=== PATIENT | female | born 1990 | race Caucasian/White ===

== ENCOUNTER 2017-07-07 09:37 | Emergency (ER) | payer OTHER ==
[2017-07-07] MEDS ORDERED: Ondansetron ODT TAB* 4 MG PO ONE (10:21)
--- NOTE | 2017-07-07 10:51 | UC ---
Abdominal Pain Female HPI - HPI Summary HPI Summary: 27 year old female with abdominal pain - History of Current Complaint Chief Complaint: UCAbdominalPain Stated Complaint: ABDOMINAL PAIN Time Seen by Provider: 07/07/17 10:32 Hx Obtained From: Patient, Family/Automotive Service Writer Hx Last Menstrual Period: last Onset/Duration: Sudden Onset Timing: Constant Severity Initially: Severe Severity Currently: Severe Location: Epigastric - 11/27 Character: Dull Aggravating Factor(s): Nothing Alleviating Factor(s): Nothing Associated Signs and Symptoms: Positive: Nausea, Vomiting. Negative: Blood in Stool Allergies/Adverse Reactions: Allergies Allergy/AdvReac Type Severity Reaction Status Date / Time Dextromethorphan Allergy Hives Verified 07/07/17 10:14 Home Medications: Home Medications NK [No Home Medications Reported] 07/07/17 [History Confirmed 07/07/17] PMH/Surg Hx/FS Hx/Imm Hx Previously Healthy: Yes - Surgical History Surgical History: None - Family History Known Family History: Positive: None - Social History Lives: With Family Alcohol Use: Rare Substance Use Type: None Smoking Status (MU): Never Smoked Tobacco Review of Systems Gastrointestinal: Abdominal Pain, Vomiting, Nausea Is Patient Immunocompromised?: No All Other Systems Reviewed And Are Negative: Yes Physical Exam Triage Information Reviewed: Yes Appearance: Well-Appearing, Well-Nourished, Pain Distress - mild Vital Signs: Initial Vital Signs Temp 98.6 F 07/07/17 10:09 Pulse 66 07/07/17 10:09 Resp 18 07/07/17 10:09 Pulse Ox 100 07/07/17 10:09 Vital Signs Reviewed: Yes Eye Exam: Normal ENT Exam: Normal Dental Exam: Normal Neck exam: Normal Neck: Positive: 1 Respiratory Exam: Normal Cardiovascular Exam: Normal Abdominal Exam: Normal Abdomen Description: Positive: Soft, Other: - mild tenderness to palpation epigastric. Negative: CVA Tenderness (R), CVA Tenderness (L), Guarding Bowel Sounds: Positive: Present Musculoskeletal Exam: Normal Neurological Exam: Normal Psychological Exam: Normal Skin Exam: Normal Re-Evaluation - Re-Evaluation First Eval Change: Worse - as patient tried to get up to leave she had episode of pre syncope -- now she was agreeable to ambulance and started fluids at this time Abd Pain Female Course/Dx - Course Course Of Treatment: Given dose of Zofran BP WNL . glucose 155. - Differential Dx/Diagnosis Provider Diagnoses: Gastroenteritis / vomiting Discharge - Discharge Plan Condition: Fair Disposition: TRANS HIGHER LVL OF CARE FAC Patient Education Materials: Acute Nausea and Vomiting (ED) Referrals: Harvey Hackett MD [Primary Care Provider] - Additional Instructions: To go to ED by ambulance
[2017-07-07 11:15] VITALS: BP 112/65
[2017-07-07] MEDS ORDERED: NS 0.9% 1000 ML* 1,000 ML BOLUS SCH (11:30)
== END 2017-07-07 11:40 | disposition short-term general hospital (02) ==
LOC: UCEAST 09:37
DX: K52.9 Noninfective gastroenteritis and colitis, unspecified (principal); R55 Syncope and collapse
CPT/HCPCS: 96360; 99203; A9270-GY; G0463

== ENCOUNTER 2017-07-07 12:02 | Inpatient (IN) | payer OTHER ==
[2017-07-07] MEDS ORDERED: Ondansetron INJ* 2 MG/ML VIAL IV ONE (12:19)
[2017-07-07] MEDS ORDERED: NS 0.9% 1000 ML* 1,000 ML IV ONE (12:19)
[2017-07-07] MEDS ORDERED: Ondansetron INJ* 2 MG/ML VIAL ONE (12:22)
[2017-07-07 12:36] LABS: Hematocrit 41 % (35-47); Hemoglobin 13.7 g/dl (12.0-16.0); Mean Corpuscular HGB Conc 33 g/dl (31-36); Mean Corpuscular Hemoglobin 29 pg (27-31); Mean Corpuscular Volume 87 fL (80-97); Mean Platelet Volume 11 um3 (7.4-10.4); Red Blood Count 4.75 10^6/ul (4.0-5.4); Red Cell Distribution Width 14 % (10.5-15); White Blood Count 13.7 10^3/ul (3.5-10.8)
[2017-07-07 12:52] LABS: ALT 18 U/L (7-52); AST 17 U/L (13-39); Albumin 4.6 g/dL (3.2-5.2); Alkaline Phosphatase 39 U/L (34-104); Anion Gap 11 mmol/L (2-11); BUN/Creatinine Ratio 25.8 (8-20); Blood Urea Nitrogen 16 mg/dL (6-24); C Reactive Protein 3.63 mg/L (< 5.00); CO2 Carbon Dioxide 21 mmol/L (22-32); Calcium 9.6 mg/dL (8.6-10.3); Chloride 100 mmol/L (101-111); EGFR African American 147.4 (>60); EGFR Non-African American 114.6 (>60); Globulin 3.2 g/dL (2-4); Glucose 158 mg/dL (70-100); Lipase 14 U/L (11.0-82.0); Magnesium 1.8 mg/dL (1.9-2.7); Potassium 3.7 mmol/L (3.5-5.0); Sodium 132 mmol/L (133-145); Total Protein 7.8 g/dL (6.4-8.9)
[2017-07-07 13:45] LABS: Urine Bilirubin Negative (Negative); Urine Glucose Negative (Negative); Urine Nitrite Negative (Negative)
[2017-07-07] MEDS ORDERED: Metoclopramide IV* 5 MG/ML 2 ML VIAL IV SLOW PU ONE (14:06)
[2017-07-07] MEDS ORDERED: Lidocaine 2% VISCOUS* 15 ML UDC PO ONE (14:07)
[2017-07-07] MEDS ORDERED: Al Hydrox/Mg Hydrox/Simet LIQ* 30 ML UDC PO ONE (14:07)
[2017-07-07] MEDS ORDERED: Metoclopramide IV* 5 MG/ML 2 ML VIAL ONE (14:09)
--- NOTE | 2017-07-07 14:52 | RAD ---
HISTORY: Right upper quadrant pain and vomiting. COMPARISONS: None TECHNIQUE: Multiple transverse and longitudinal ultrasound images were obtained of the right upper quadrant. FINDINGS: LIVER: The liver is normal in dimensions and echogenicity. Normal hepatic and portal venous blood flow is duplicated with color flow imaging. There is no gross intrahepatic biliary duct dilatation. GALLBLADDER AND EXTRAHEPATIC BILIARY DUCT: The hand tire trimmer reports a positive sonographic Valenzuela sign. There is mildly echogenic fluid filling the gallbladder lumen. Resting on top of this fluid are echogenic and shadowing foci consistent with gallbladder stones. There is at least one gallstone at the gallbladder neck measuring just over a centimeter in diameter that appears to be immobile. The wall the gallbladder measures up to 6 mm in thickness. There is no definite pericholecystic fluid. The common bile duct measures a maximum diameter of 2 mm. PANCREAS: The portions of the pancreas not obscured by bowel gas are normal in appearance. RIGHT KIDNEY: The right kidney is normal in size, morphology and echogenicity. AORTA AND IVC: The visualized portions are normal in appearance and not pathologically dilated. IMPRESSION: CHOLELITHIASIS AND BILIARY SLUDGE WITH APPEARANCE OF GALLBLADDER WALL THICKENING AND AT LEAST ONE IMMOBILE GALLSTONE AT THE GALLBLADDER NECK. SONOGRAPHIC FINDINGS COULD BE CONSISTENT WITH EARLY OBSTRUCTIVE CHOLECYSTITIS IN THE CORRECT CLINICAL SETTING. IF CLINICALLY WARRANTED FURTHER PHYSIOLOGIC CHARACTERIZATION COULD BE MADE WITH HIDA SCAN.
[2017-07-07] MEDS ORDERED: Morphine INJ* 4 MG/ML 1 ML CARPUJECT IV ONE (15:43)
[2017-07-07] MEDS ORDERED: HYDROmorphone INJ* 1 MG/ML CARPUJECT SYRINGE IV PRN (16:09)
[2017-07-07] MEDS ORDERED: Ondansetron INJ* 2 MG/ML VIAL IV PRN (16:09)
[2017-07-07] MEDS ORDERED: ZOSYN 3.375 GM x ONE DOSE over 30 miuntes IVPB ×2 (17:00)
[2017-07-07] MEDS ORDERED: Piperacillin/Tazobactam VIAL*) 3.375 GM in NS 0.9% 100 ML* 100 ML IVPB SCH (17:00)
--- NOTE | 2017-07-07 17:56 | ED ---
Sue Napoles Edward, scribed for Jhon Kang MD on 07/07/17 at 1242 . Complex/Multi-Sys Presentation - HPI Summary HPI Summary: 27 y/o female BIBA from Urgent Care c/o sudden onset ABD pain and intermittent N /V starting at 06:00 this morning. Pt woke up to severe ABD pain mostly in the upper ABD. Pt also c/o chest tightness. The vomiting is intermittent - pt has vomited 2x since receiving medicine at urgent care. Associated sx: pt felt lightheaded and had a near syncopal episode at Urgent Care after standing up. Pt is accompanied by her mother. Denies sick contact. LNMP last weekend. Denies vaginal discharge/bleeding. - History Of Current Complaint Chief Complaint: EDNauseaVomitDiarrh Hx Obtained From: Patient Onset/Duration: Sudden Onset, Lasting Hours Timing: Constant Location: Pain At: - upper ABD Associated Signs And Symptoms: Positive: Syncope - near syncope and lightheadednes, Nausea, Vomiting, Abdominal Pain - Allergies/Home Medications Allergies/Adverse Reactions: Allergies Allergy/AdvReac Type Severity Reaction Status Date / Time Dextromethorphan Allergy Hives Verified 07/07/17 12:13 PMH/Surg Hx/FS Hx/Imm Hx Previously Healthy: No Endocrine/Hematology History: Denies: Hx Diabetes, Hx Thyroid Disease Cardiovascular History: Denies: Hx Hypertension Respiratory History: Denies: Hx Asthma, Hx Chronic Obstructive Pulmonary Disease (COPD) GI History: Denies: Hx Ulcer Infectious Disease History: No Infectious Disease History: Denies: Hx Hepatitis, Hx Human Immunodeficiency Virus (HIV), History Other Infectious Disease, Traveled Outside the [place] in Last 30 Days - Family History Known Family History: Positive: None - Social History Alcohol Use: Rare Substance Use Type: Reports: None Smoking Status (MU): Never Smoked Tobacco Review of Systems Negative: Fever, Chills Negative: Erythema Negative: Sore Throat Negative: Chest Pain Negative: Shortness Of Breath, Cough Positive: Abdominal Pain, Vomiting, Nausea Negative: dysuria, hematuria Negative: Myalgia, Edema Negative: Rash Positive: Syncope - Near syncope and lightheadedness All Other Systems Reviewed And Are Negative: Yes Physical Exam - Summary Physical Exam Summary: Constitutional: Well-developed, Well-nourished, Alert. (-) Distressed Skin: Warm, Dry HENT: Normocephalic; Atraumatic Eyes: Conjunctiva normal Neck: Musculoskeletal ROM normal neck. (-) JVD, (-) Stridor, (-) Tracheal deviation Cardio: Rhythm regular, rate normal, Heart sounds normal; Intact distal pulses; The pedal pulses are 2+ and symmetric. Radial pulses are 2+ and symmetric. (-) Murmur Pulmonary/Chest wall: Effort normal. (-) Respiratory distress, (-) Wheezes, (-) Rales Abd: Soft, Mild RUQ and epigastric tenderness. (-) Distension, (-) Guarding, (- ) Rebound Musculoskeletal: (-) Edema Lymph: (-) Cervical adenopathy Neuro: Alert, Oriented x3 Psych: Mood and affect Normal Triage Information Reviewed: Yes Vital Signs On Initial Exam: Initial Vitals Temp Pulse Resp BP Pulse Ox 98 F 66 16 113/66 99 07/07/17 12:11 07/07/17 12:11 07/07/17 12:11 07/07/17 12:11 07/07/17 12:11 Vital Signs Reviewed: Yes - Mason Coma Scale Coma Scale Total: 15 Diagnostics - Vital Signs Vital Signs Temp Pulse Resp BP Pulse Ox 07/07/17 12:30 65 105/64 99 07/07/17 12:15 49 88 07/07/17 12:12 113/66 07/07/17 12:11 98 F 66 16 113/66 99 - Laboratory Lab Results: Lab Results 07/07/17 Range/Units 11:30 WBC 13.7 H (3.5-10.8) 10^3/ul RBC 4.75 (4.0-5.4) 10^6/ul Hgb 13.7 (12.0-16.0) g/dl Hct 41 (35-47) % MCV 87 (80-97) fL MCH 29 (27-31) pg MCHC 33 (31-36) g/dl RDW 14 (10.5-15) % Plt Count 186 (150-450) 10^3/ul MPV 11 H (7.4-10.4) um3 Neut % (Auto) 94.7 H (38-83) % Lymph % (Auto) 4.1 L (25-47) % [place] % (Auto) 0.9 L (1-9) % Eos % (Auto) 0 (0-6) % Baso % (Auto) 0.3 (0-2) % Absolute Neuts (auto) 13.0 H (1.5-7.7) 10^3/ul Absolute Lymphs (auto) 0.6 L (1.0-4.8) 10^3/ul Absolute Monos (auto) 0.1 (0-0.8) 10^3/ul Absolute Eos (auto) 0 (0-0.6) 10^3/ul Absolute Basos (auto) 0 (0-0.2) 10^3/ul Absolute Nucleated RBC 0 10^3/ul Nucleated RBC % 0 Result Diagrams: 07/07/17 11:30 07/07/17 11:30 Lab Statement: Any lab studies that have been ordered have been reviewed, and results considered in the medical decision making process. - Ultrasound No standard instances Ultrasound Interpretation: Positive (See Comments) - CHOLELITHIASIS AND BILIARY SLUDGE WITH APPEARANCE OF GALLBLADDER WALL THICKENING AND AT LEAST ONE IMMOBILE GALLSTONE AT THE GALLBLADDER NECK. SONOGRAPHIC FINDINGS COULD BE CONSISTENT WITH EARLY OBSTRUCTIVE CHOLECYSTITIS IN THE CORRECT CLINICAL SETTING. IF CLINICALLY WARRANTED FURTHER PHYSIOLOGIC CHARACTERIZATION COULD BE MADE WITH HIDA SCAN. Ultrasound Interpretation Completed By: Radiologist - ED PHYSICIAN REVIEWS AND AGREES Re-Evaluation - Re-Evaluation 1 Re-Evaluation Time: 15:43 Change: Unchanged - Updated pt on plan of care Complex Multi-Symp Course/Dx Assessment/Plan: 27 y/o female BIBA from Urgent Care c/o sudden onset ABD pain and intermittent N/V starting at 06:00 this morning. Pt woke up to diffuse, severe ABD pain. Pt also c/o chest tightness. The vomiting is intermittent - pt has vomited 2x since receiving medicine at urgent care. Associated sx: pt felt lightheaded and had a near syncopal episode at Urgent Care after standing up. Pt is accompanied by her mother. Denies sick contact. LNMP last weekend. Denies vaginal discharge/bleeding. GALLBLADDER US SHOWS CHOLELITHIASIS AND BILIARY SLUDGE WITH APPEARANCE OF GALLBLADDER WALL THICKENING AND AT LEAST ONE IMMOBILE GALLSTONE AT THE GALLBLADDER NECK. SONOGRAPHIC FINDINGS COULD BE CONSISTENT WITH EARLY OBSTRUCTIVE CHOLECYSTITIS IN THE CORRECT CLINICAL SETTING. IF CLINICALLY WARRANTED FURTHER PHYSIOLOGIC CHARACTERIZATION COULD BE MADE WITH HIDA SCAN. Spoke with Dr. León who will come to see pt in ED. Discussed dx of cholecystitis. No laboratory evidence for obstruction. Pt will be admitted by Dr. León at 16:09. - Diagnoses Provider Diagnoses: Cholecystitis - Physician Notifications Discussed Care Of Patient With: Rolo León Time Discussed With Above Provider: 15:30 Instructed by Provider To: MD Will See In ED Discharge - Discharge Plan Condition: Stable Disposition: ADMITTED TO [facility] Referrals: Harvey Hackett MD [Primary Care Provider] - The documentation as recorded by the Sue vargas Edward accurately reflects the service I personally performed and the decisions made by Pearl coelho Jerry, MD.
[2017-07-07] MEDS: Ketorolac INJ* 30 MG/ML 1 ML VIAL IV PRN (17:59)
[2017-07-07] MEDS: HYDROmorphone INJ* 1 MG/ML CARPUJECT SYRINGE IV PRN (18:20)
[2017-07-07] MEDS: ZOSYN 3.375 GM Q8H per EXTENDED INFUSION IVPB SCH ×2 (22:28)
--- NOTE | 2017-07-08 00:35 | HP ---
CC: Harvey Hackett MD HISTORY AND PHYSICAL: DATE OF ADMISSION: 07/07/17 REASON FOR ADMISSION: Acute cholecystitis. HISTORY OF PRESENT ILLNESS: The patient is a 27-year-old female with a 6 months history of intermittent right upper quadrant pain, usually occurring in the middle of the night or nat instructor. She had the most severe episode this morning, starting at 6 a.m. and it awoke her. She had been otherwise well and had eaten 2 large bowls of homemade chicken soup yesterday. She had episodes of nausea, vomiting, subjective fevers and chills. No dysuria or hematuria and the pain located in the right upper quadrant and in the epigastrium with no radiation to the back or chest. The patient presented to the [facility] and subsequently was transferred to [facility] Emergency Room. She has received Maalox, viscous lidocaine, Zofran, and Reglan with no relief of her pain. She did not take any medication at home. She denies tea- colored urine, jaundice, or rocio-colored stools. She had normal bowel movements within the past day. She reports no hematemesis. PAST MEDICAL HISTORY: Unremarkable. PAST SURGICAL HISTORY: [place] tooth extraction. MEDICATIONS: None. ALLERGIES: DEXTROMETHORPHAN causes hives. FAMILY HISTORY: No cardiopulmonary disease. History of cholecystectomy in her mother. History of urolithiasis in her father. Brother has migraine headaches. SOCIAL HISTORY: female. 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 Does not smoke. Rarely drinks alcohol. Denies drug use. REVIEW OF SYSTEMS: A 14-point review of systems was performed with pertinent positives and negatives as in the HPI, otherwise negative. PHYSICAL EXAMINATION VITAL SIGNS: She is 5 feet 9 inches tall, weighing 160 pounds, BMI 23.6. She has a temperature of 98 degrees, blood pressure 105/64, pulse is 65, respirations 24, O2 sat 99% on room air. HEENT: Head: Normocephalic and atraumatic. Her sclerae anicteric. Her mucous membranes appeared moist. She has no otorrhea, no rhinorrhea. Dentition is intact. NECK: Her neck is symmetrical with midline trachea. No palpable lymphadenopathy or masses. LUNGS: Her lungs are clear to auscultation bilaterally without wheezes, rales, or rhonchi. HEART: Her heart is regular. S1, S2. No murmurs, rubs, or gallops appreciated. ABDOMEN: The abdomen is without scars, it is nondistended. Bowel sounds are diminished. It is soft with tenderness in the right upper quadrant with equivocal Valenzuela's sign. No hepatosplenomegaly appreciated. No hernias noted. EXTREMITIES: Warm without cyanosis, clubbing, or edema. No calf tenderness. 2 + bilateral dorsalis pedis pulsations noted. DIAGNOSTIC STUDIES/LABORATORY DATA: WBC is 13.7, hemoglobin is 13.7, platelet count 186. Chemistry: Sodium is low at 132, potassium is 3.7, chloride is 100 , bicarb is 21, BUN 16, creatinine 0.6, glucose of 158, magnesium 1.8. Her transaminases, bilirubin, alk phos, CRP, and lipase are normal. Beta-hCG is negative. Ultrasound of the gallbladder performed on 09/06/16, images were reviewed, findings demonstrate a gallbladder with 6-mm thickness, gallstones, a mobile gallstone in the neck and common bile duct of 2 mm. IMPRESSION: A 27-year-old female with acute calculous cholecystitis. PLAN/RECOMMENDATIONS: The patient will be admitted for IV hydration, IV antibiotics, analgesics, and will keep her NPO for now. We will plan on laparoscopic cholecystectomy this admission,likely on Sunday with Dr. Singleton. The plan was discussed with the patient and her mother who accompanied her. The patient had an opportunity to ask questions, all her questions were answered. She states her understanding and agrees to the plan. [id number]/[facility] #: [id number] MTDD
[2017-07-08 05:30] LABS: Hematocrit 36 % (35-47); Hemoglobin 11.9 g/dl (12.0-16.0); Mean Corpuscular HGB Conc 33 g/dl (31-36); Mean Corpuscular Hemoglobin 29 pg (27-31); Mean Corpuscular Volume 88 fL (80-97); Mean Platelet Volume 11 um3 (7.4-10.4); Red Blood Count 4.06 10^6/ul (4.0-5.4); Red Cell Distribution Width 14 % (10.5-15)
[2017-07-08 05:37] LABS: Albumin 3.4 g/dL (3.2-5.2); BUN/Creatinine Ratio 20.3 (8-20); EGFR African American 130.3 (>60); EGFR Non-African American 101.3 (>60); Globulin 2.5 g/dL (2-4); Potassium 3.4 mmol/L (3.5-5.0); Total Bilirubin 0.8 mg/dL (0.2-1.0); Total Protein 5.9 g/dL (6.4-8.9)
[2017-07-08] MEDS: Ketorolac INJ* 30 MG/ML 1 ML VIAL IV PRN ×3 (05:44→22:15)
[2017-07-08] MEDS: ZOSYN 3.375 GM Q8H per EXTENDED INFUSION IVPB SCH ×6 (05:45→22:18)
[2017-07-08] MEDS: NS 0.9% 1000 ML* 1,000 ML IV SCH ×2 (08:30→16:58)
[2017-07-08] MEDS ORDERED: Influenza VAC *QUAD* 2017-18* 0.5 ML SYRINGE IM ONE (09:00)
--- NOTE | 2017-07-08 10:38 | PN ---
Progress Note - Progress Note Date of Service: 07/08/17 SOAP: Subjective: Pain improved with medication. N/V controlled. She feels better than yesterday. Objective: Vital Signs Temp 98.1 F 07/08/17 07:36 Pulse 60 07/08/17 07:36 Resp 16 07/08/17 07:36 BP 92/44 07/08/17 07:36 Pulse Ox 98 07/08/17 07:36 Gen: NAD Abd: mild tenderness in RUQ to mod palpation. Intake & Output 07/07/17 07/08/17 07/08/17 18:59 06:59 18:59 Intake Total 1040 1500 Output Total 900 350 Balance 140 1150 Weight 160 lb 171 lb 9.6 oz Intake: IV Fluids 803 1000 LR 803 1000 IVPB 237 500 ABX - ZOSYN 237 LR 500 Oral 0 Output: Urine 800 350 Emesis 100 Laboratory Results 07/08/17 07/08/17 05:13 05:13 WBC 10.0 RBC 4.06 Hgb 11.9 L Hct 36 MCV 88 MCH 29 MCHC 33 RDW 14 Plt Count 149 L MPV 11 H Neut % (Auto) 70.6 Lymph % (Auto) 19.4 L [place] % (Auto) 9.1 H Eos % (Auto) 0.5 Baso % (Auto) 0.4 Absolute Neuts (auto) 7.0 Absolute Lymphs (auto) 1.9 Absolute Monos (auto) 0.9 H Absolute Eos (auto) 0.1 Absolute Basos (auto) 0 Absolute Nucleated RBC 0 Nucleated RBC % 0 Sodium 136 Potassium 3.4 L Chloride 107 Carbon Dioxide 24 Anion Gap 5 BUN 14 Creatinine 0.69 Est GFR ( Amer) 130.3 Est GFR (Non-Af Amer) 101.3 BUN/Creatinine Ratio 20.3 H Glucose 94 Calcium 8.0 L Magnesium Total Bilirubin 0.80 AST 12 L ALT 14 Alkaline Phosphatase 26 L C-Reactive Protein Total Protein 5.9 L Albumin 3.4 Globulin 2.5 Albumin/Globulin Ratio 1.4 Lipase Beta HCG, Quant Urine Color Urine Appearance Urine pH Ur Specific [place] Urine Protein Urine Ketones Urine Blood Urine Nitrate Urine Bilirubin Urine Urobilinogen Ur Leukocyte Esterase Urine Glucose Urine Ascorbic Acid Assessment: Acute cholecystitis, improved overnight. Plan: Continue current tx. Lap juani on 07/[address] Singleton.
[2017-07-09] MEDS: NS 0.9% 1000 ML* 1,000 ML IV SCH (00:55)
[2017-07-09] MEDS: ZOSYN 3.375 GM Q8H per EXTENDED INFUSION IVPB SCH ×6 (05:47→20:21)
[2017-07-09] MEDS: Ketorolac INJ* 30 MG/ML 1 ML VIAL IV PRN (05:53)
[2017-07-09] MEDS ORDERED: Influenza VAC *QUAD* 2017-18* 0.5 ML SYRINGE IM ONE (09:00)
[2017-07-09] MEDS ORDERED: Sodium Citrate/Citric Acid* 15 ML UDC ONE (15:02)
[2017-07-09] MEDS ORDERED: Bupivacaine 0.25% SDV* 30 ML ONE (15:15)
[2017-07-09] MEDS ORDERED: fentaNYL* 50 MCG/ML 2 ML VIAL (100 MCG VIAL) ONE (15:36)
[2017-07-09] MEDS ORDERED: Rocuronium* 10 MG/ML VIAL ONE (15:38)
[2017-07-09] MEDS ORDERED: Propofol* 10 MG/ML 20 ML BTL IV PUSH ONE (15:48)
[2017-07-09] MEDS ORDERED: fentaNYL* 50 MCG/ML 2 ML VIAL (100 MCG VIAL) IV PRN (15:49)
[2017-07-09] MEDS ORDERED: DiMENhydriNATE IV* 50 MG/ML VIAL IV PUSH PRN (15:49)
[2017-07-09] MEDS ORDERED: Dexamethasone IV* 4 MG/ML 1 ML (4 MG) ONE (16:02)
[2017-07-09] MEDS ORDERED: Lidocaine 2% PF * 5 ML VIAL ONE (16:02)
[2017-07-09] MEDS ORDERED: Neostigmine Methylsulfate* 2 MG/2 ML SYRINGE ONE (16:39)
[2017-07-09] MEDS ORDERED: Glycopyrrolate IV* 0.2 MG/ML 1 ML VIAL ONE (16:39)
--- NOTE | 2017-07-09 17:21 | PN ---
Progress Note - Progress Note Date of Service: 07/09/17 Note: Brief Operative Note: Preop Dx: acute calculous cholecystitis Postop Dx: same Procedure: laparoscopic cholecystectomy Anesthesia: GET Surgeon: Mani Asst: DELFINO Shaver Fluids: 600 ml RL EBL: < 50 ml Drains: none Specimen: gallbladder Findings: see dictated
[2017-07-09] MEDS ORDERED: Acetaminophen TAB* 325 MG PO PRN (17:22)
[2017-07-09] MEDS ORDERED: HYDROcodone/ACETAMIN 5-325 MG* 1 TAB PO PRN (17:23)
[2017-07-09] MEDS: HYDROmorphone INJ* 1 MG/ML CARPUJECT SYRINGE IV PRN (18:30)
[2017-07-10] MEDS: ZOSYN 3.375 GM Q8H per EXTENDED INFUSION IVPB SCH ×2 (05:19)
--- NOTE | 2017-07-10 08:43 | PN ---
Progress Note - Progress Note Date of Service: 07/10/17 SOAP: Subjective: Doing well-minimal pain and tolerating PO Ambulating in the halls Objective: Temp Pulse Resp BP Pulse Ox 98.7 F 73 16 98/41 97 07/10/17 03:25 07/10/17 03:25 07/10/17 07:25 07/10/17 03:25 07/10/17 03:25 Intake & Output 07/08/17 07/09/17 07/10/17 07/11/17 06:59 06:59 06:59 06:59 Intake Total 1040 4339 2922 Output Total 900 1600 2475 Balance 140 2739 447 Weight 171 lb 9.6 oz 178 lb 1.6 oz 180 lb 2 oz Intake: IV Fluids 803 3743 1982 ABX - ZOSYN 151 243 LR 803 2986 600 NS (0.9%) 606 1139 IVPB 237 596 ABX - ZOSYN 237 96 LR 500 Oral 0 0 940 Output: Urine 800 1600 2425 Emesis 100 Estimated Blood Loss 50 PEX: Comfortable Lungs are clear Abd is soft and non-distended. Bowel sounds are present. Incisions are clean and dry Assessment: POD#1 s/p lap choly for acute calculous cholecystitis Plan: D/C home today No further antibiotics Outpatient follow up next week Post op care discussed with patient and her parents
[2017-07-10 09:25] VITALS: BP 106/58
--- NOTE | 2017-07-10 13:02 | OP ---
CC: Dr. Harvey Hackett * DATE OF OPERATION: 07/09/17 - ROOM #339 DATE OF : 88 SURGEON: Tristan Singleton MD ALGEBRA TEACHER: DELFINO Durham ANESTHESIOLOGIST: Dr. Parekh. ANESTHESIA: Local with general anesthesia. PRE-OP DIAGNOSIS: Acute calculus cholecystitis. POST-OP DIAGNOSIS: Acute calculus cholecystitis. OPERATIVE PROCEDURE: Laparoscopic cholecystectomy. ESTIMATED BLOOD LOSS: Minimal. IV FLUIDS: 1 L of crystalloid. WOUND CLASSIFICATION: III. DRAINS: None. SPECIMENS: Gallbladder. COMPLICATIONS: None. FINDINGS: Acute calculus cholecystitis, the gallbladder was edematous and thick walled and markedly distended with sludge and stones within the lumen, consistent with acute calculous cholecystitis. BRIEF HISTORY: Ms. Marysol lAy is a 27-year-old woman, presented to the emergency room with almost 12 hours of severe epigastric right upper quadrant abdominal discomfort. She noted a mild white blood cell count elevation and ultrasound that showed gallstones, gallbladder sludge, some mild thickening of the gallbladder wall consistent with acute calculus cholecystitis. She was admitted, started on IV antibiotics, is now to undergo a cholecystectomy for acute calculus cholecystitis. The procedure was discussed with the patient and her parents and the risks are, but not limited to bleeding, infection, abdominal abscess formation, injury to peritoneal and retroperitoneal structures, common bile duct injury requiring further reconstruction, risks of general anesthesia, possibility of an open procedure, and the risks of deep vein thrombosis and pulmonary embolism were discussed. DESCRIPTION OF PROCEDURE: Written informed consent was obtained, preoperative antibiotics were administered, and the abdomen was marked with indelible ink. The patient was taken to the operating room, placed in the supine position. Sequential compression devices and a warming blanket were applied. General anesthesia was administered. The abdomen was prepped and draped in the usual sterile fashion. Time-out verification was completed. Initially, a small transverse incision was made just below the umbilicus at the midline. The peritoneal cavity was entered under direct vision. A 12-mm blunt port was inserted and the abdomen was insufflated to 15 mmHg. Under direct vision, an 11-mm epigastric port was placed and two 5-mm ports were placed in the right side of the abdominal wall. The gallbladder was identified. It was edematous, grayish in color and markedly distended. There was some pericholecystic edema and fluid. The liver appeared to be unremarkable. The findings were consistent with acute cholecystitis. No evidence of gangrene was noted. It was difficult to grasp the gallbladder and we proceeded to drain the gallbladder with a large 18-gauge needle of some thick greenish grayish fluid allowing us to grasp the gallbladder and elevated up over the liver bed. Next, the thickened peritoneum along the infundibular area was taken down using electrocautery, medial and lateral to the gallbladder itself to expose the cystic artery and duct as they entered the gallbladder. There was a large inflamed lymph node as to be expected. I took a considerable portion of the inferior part of the gallbladder off the liver bed using the critical view technique with a combination of sharp and blunt dissection to assure myself of the cystic duct and cystic artery and that these were the only two structures entering the gallbladder. The cystic duct was of normal caliber. This was then triply clipped and divided. The cystic artery was then doubly clipped and divided. The gallbladder was removed from the liver bed and placed in an EndoCatch bag. The gallbladder was then removed from the umbilical port. It was difficult and we had to slightly enlarge the fascial defect as well as open up the bag and suction as much bile and sludge from the gallbladder itself to remove that from the abdominal cavity. The liver bed was then irrigated thoroughly. There was no evidence of bile leak or bleeding. We irrigated quite a bit in the right upper quadrant until this was clear. All ports were removed under direct vision of the camera. The umbilical fascia was closed with interrupted 0 Polysorb suture. The skin was approximated with subcuticular 4-0 Polysorb sutures. Steri-Strips were applied. The patient tolerated the procedure well, was taken to the recovery room in stable condition. [id number]/[facility] #: [id number] URSULA
== END 2017-07-10 09:55 | disposition home or self-care (01) | DRG 419 ==
LOC: ED 12:02 → SSU 16:09
PROVIDERS: ADMIT Surgery; ATTEND Surgery
PROC: 0FT44ZZ Resection of Gallbladder, Percutaneous Endoscopic Approach (ICD-10-PCS; principal; 2017-07-09 14:00)
DX: K80.00 Calculus of gallbladder with acute cholecystitis without obstruction (principal); R40.2412 Glasgow coma scale score 13-15, at arrival to emergency department; Z88.8 Allergy status to other drugs, medicaments and biological substances
CPT/HCPCS: 36415; 76705; 80053; 81003; 83690; 83735; 84702; 85025; 86140; 88304; A9270-GY; J1100; J1170; J1885; J2270; J2405; J2543; J2704; J2765; J3010